=== PATIENT | male | born 1945 | race Caucasian/White ===

== ENCOUNTER 2018-03-28 15:21 | Inpatient (IN) | payer MEDICARE, OTHER ==
[~2018-03-28] VITALS: Ht 175.3 cm; Wt 71.1 kg
[2018-03-28 15:49] LABS: BASOPHILS % (AUTO) 0 % (0-1); EOSINOPHILS % (AUTO) 0 % (0-6); HEMATOCRIT 38.1 % (42.0-52.0); HEMOGLOBIN 12.8 g/dl (14.0-17.9); LYMPHOCYTES # (AUTO) 0.3 X10'3 (1.1-4.8); LYMPHOCYTES % (AUTO) 1.8 % (21-51); MEAN CORPUSCULAR HEMOGLOBIN 29.3 PG (27.0-31.0); MEAN CORPUSCULAR HGB CONC 33.6 % (33.0-36.5); MEAN CORPUSCULAR VOLUME 87.1 FL (78-98); MEAN PLATELET VOLUME 8.8 FL (7.4-10.4); MONOCYTES # (AUTO) 1.4 X10'3 (0-0.9); MONOCYTES % (AUTO) 7.5 % (2-12); NEUTROPHILS # (AUTO) 16.5 X10'3 (1.8-7.7); NEUTROPHILS % (AUTO) 90.7 % (42-75); PLATELET COUNT 190 X10'3 (140-440); RED BLOOD COUNT 4.38 X10'6 (4.70-6.10); RED CELL DISTRIBUTION WIDTH 14.5 % (11.5-14.5); WHITE BLOOD COUNT 18.2 X10'3 (4.5-11.0)
[2018-03-28 15:58] LABS: INR 1.1 INR; PROTHROMBIN TIME 11.1 SECONDS (9.0-12.0)
[2018-03-28 16:03] LABS: ALANINE AMINOTRANSFERASE 35 U/L (12-78); ALBUMIN 3.7 G/DL (3.4-5.0); ALKALINE PHOSPHATASE 96 IU/L (46-116); ANION GAP 11 (8-16); ASPARTATE AMINO TRANSFERASE 44 U/L (10-37); BILIRUBIN,TOTAL 1.6 MG/DL (0.1-1.0); BLOOD UREA NITROGEN 26 MG/DL (7-18); BUN/CREATININE RATIO 20.3 (5.4-32.0); CALCIUM 8.8 MG/DL (8.5-10.1); CHLORIDE 100 MMOL/L (99-107); CREATININE 1.28 MG/DL (0.60-1.10); GLUCOSE 134 MG/DL (70-104); POTASSIUM 3.5 MMOL/L (3.5-5.1); SODIUM 138 MMOL/L (135-145); TOTAL CARBON DIOXIDE 27.4 MMOL/L (24-32); TOTAL PROTEIN 7.5 G/DL (6.4-8.2); eGFR 55 ML/MIN
[2018-03-28] MEDS ORDERED: CefTRIAXone 2gm/D5W 50ml 50 ML IV ONE (16:05)
[2018-03-28] MEDS ORDERED: normal saline 1000ML IV soln IV ONE (16:05)
[2018-03-28] MEDS ORDERED: oxybutynin 5mg tablet PO ONE (16:15)
[2018-03-28] MEDS ORDERED: opium/belladonna alkaloids No. 15A 30mg rectal suppository RC ONE (16:15)
[2018-03-28 18:05] LABS: CLARITY,URINE CLEAR (Clear); COLOR,URINE YELLOW (Yellow); GLUCOSE, URINE NEGATIVE (Neg); KETONES,URINE 15 mg/dl (Neg); LEUKOCYTE ESTERASE ,URINE LARGE (Neg); NITRITES, URINE POSITIVE (Neg); OCCULT BLOOD,URINE LARGE (Neg); PROTEIN,URINE 30 mg/dl (Neg)
[2018-03-28 18:21] LABS: UA COLLECTION TYPE FOLEY CATH
[2018-03-28 18:27] LABS: BACTERIA,URINE 2+ /HPF (Neg); RBC,URINE 0-2 /HPF (0-2); SQUAMOUS EPITHELIAL CELL,UR NONE SEEN /LPF (FEW)
[2018-03-28 18:29] LABS: MUCUS STRANDS FEW /LPF (Neg)
[2018-03-28] MEDS ORDERED: TERA10CA4 PO (19:47)
[2018-03-28] MEDS ORDERED: LISI-600 PO (19:47)
[2018-03-28] MEDS ORDERED: ATOR10TA87 PO (19:52)
[2018-03-28] MEDS ORDERED: magnesium hydroxide 30ml (MOM) UD suspension PO PRN (22:15)
[2018-03-28] MEDS ORDERED: ondansetron/PF 4mg/2ml inj IV PRN (22:15)
[2018-03-28] MEDS ORDERED: mag hydrox/Alum hydrox/simeth 30ml oral suspension PO PRN (22:15)
[2018-03-28] MEDS ORDERED: HYDROcodone/acetaminophen 5mg/325mg tablet PO PRN (22:15)
[2018-03-28] MEDS ORDERED: acetaminophen 325mg tablet PO PRN (22:15)
[2018-03-28] MEDS ORDERED: HYDROmorphone inj. 0.5 MG/0.5 ML DISP.SYRIN IV PRN ×2 (22:15)
[2018-03-28] MEDS ORDERED: HYDROmorphone 1 mg/ml syringe IV PRN (22:20)
[2018-03-28 22:35] VITALS: BP 166/77
[2018-03-28] MEDS: normal saline 1000ml 1,000 ML IV SCH (22:57)
[2018-03-29 00:35] VITALS: BP 132/64
[2018-03-29] MEDS: HYDROcodone/acetaminophen 10/325mg tab PO PRN ×4 (03:30→18:52)
[2018-03-29 05:15] LABS: BASOPHILS % (AUTO) 0.3 % (0-1); EOSINOPHILS % (AUTO) 0.2 % (0-6); HEMATOCRIT 32.9 % (42.0-52.0); HEMOGLOBIN 10.9 g/dl (14.0-17.9); LYMPHOCYTES # (AUTO) 0.7 X10'3 (1.1-4.8); LYMPHOCYTES % (AUTO) 5.5 % (21-51); MEAN CORPUSCULAR HEMOGLOBIN 28.7 PG (27.0-31.0); MEAN CORPUSCULAR HGB CONC 33.1 % (33.0-36.5); MEAN CORPUSCULAR VOLUME 86.8 FL (78-98); MEAN PLATELET VOLUME 9.4 FL (7.4-10.4); MONOCYTES # (AUTO) 0.8 X10'3 (0-0.9); MONOCYTES % (AUTO) 6.6 % (2-12); NEUTROPHILS # (AUTO) 11.2 X10'3 (1.8-7.7); NEUTROPHILS % (AUTO) 87.4 % (42-75); PLATELET COUNT 166 X10'3 (140-440); RED CELL DISTRIBUTION WIDTH 14.7 % (11.5-14.5); WHITE BLOOD COUNT 12.8 X10'3 (4.5-11.0)
[2018-03-29 05:33] LABS: ALANINE AMINOTRANSFERASE 30 U/L (12-78); ALBUMIN 2.7 G/DL (3.4-5.0); ALBUMIN/GLOBULIN RATIO 0.8 (1.1-1.5); ALKALINE PHOSPHATASE 77 IU/L (46-116); ANION GAP 8 (8-16); ASPARTATE AMINO TRANSFERASE 31 U/L (10-37); BILIRUBIN,TOTAL 0.8 MG/DL (0.1-1.0); BLOOD UREA NITROGEN 23 MG/DL (7-18); BUN/CREATININE RATIO 25.8 (5.4-32.0); CALCIUM 7.9 MG/DL (8.5-10.1); CHLORIDE 107 MMOL/L (99-107); CREATININE 0.89 MG/DL (0.60-1.10); GLUCOSE 105 MG/DL (70-104); POTASSIUM 3.2 MMOL/L (3.5-5.1); SODIUM 140 MMOL/L (135-145); TOTAL CARBON DIOXIDE 24.8 MMOL/L (24-32); eGFR 84 ML/MIN
[2018-03-29 07:00] VITALS: BP 155/75
[2018-03-29] MEDS ORDERED: lisinopril 20mg tablet PO SCH (08:00)
[2018-03-29] MEDS: terazosin 5mg capsule PO SCH (08:45)
[2018-03-29] MEDS: atorvastatin 10mg tablet PO SCH (08:45)
[2018-03-29] MEDS: CefTRIAXone/D5W-Rocephin 1gm 50 ML IV SCH (08:46)
[2018-03-29] MEDS ORDERED: potassium Cl 40MEQ/NS 500ml 500 ML IV PRN ×2 (10:15)
[2018-03-29] MEDS ORDERED: potassium Cl 20 mEq SR tablet PO PRN (10:15)
[2018-03-29 11:00] VITALS: BP 135/68
[2018-03-29] MEDS: potassium Cl 20 mEq SR tablet PO PRN ×3 (11:42→20:37)
[2018-03-29 13:48] LABS: LIPASE 79 U/L (73-393)
[2018-03-29 13:54] LABS: MAGNESIUM 1.8 MG/DL (1.5-2.4)
[2018-03-29] MEDS: normal saline 1000ml 1,000 ML IV SCH (15:10)
[2018-03-29 18:00] VITALS: BP 148/78
[2018-03-30] VITALS: BP 173/79
[2018-03-30 01:00] VITALS: BP 170/82
[2018-03-30] MEDS ORDERED: lisinopril 10 MG tablet PO ONE ×3 (01:35→10:30)
[2018-03-30] MEDS ORDERED: lisinopril 10 MG tablet PO SCH (01:42)
[2018-03-30] MEDS: HYDROmorphone 1 mg/ml syringe IV PRN ×5 (03:11→23:14)
[2018-03-30 03:47] VITALS: BP 160/74
[2018-03-30] MEDS: normal saline 1000ml 1,000 ML IV SCH ×2 (04:35→23:15)
[2018-03-30 04:44] LABS: BASOPHILS % (AUTO) 0.4 % (0-1); EOSINOPHILS # (AUTO) 0.1 X10'3 (0-0.9); EOSINOPHILS % (AUTO) 0.5 % (0-6); HEMATOCRIT 33.4 % (42.0-52.0); HEMOGLOBIN 11.2 g/dl (14.0-17.9); LYMPHOCYTES # (AUTO) 0.8 X10'3 (1.1-4.8); LYMPHOCYTES % (AUTO) 6.8 % (21-51); MEAN CORPUSCULAR HEMOGLOBIN 29.3 PG (27.0-31.0); MEAN CORPUSCULAR HGB CONC 33.6 % (33.0-36.5); MEAN CORPUSCULAR VOLUME 87.4 FL (78-98); MEAN PLATELET VOLUME 9.2 FL (7.4-10.4); MONOCYTES # (AUTO) 0.9 X10'3 (0-0.9); MONOCYTES % (AUTO) 7.7 % (2-12); NEUTROPHILS # (AUTO) 10.2 X10'3 (1.8-7.7); NEUTROPHILS % (AUTO) 84.6 % (42-75); PLATELET COUNT 187 X10'3 (140-440); RED BLOOD COUNT 3.83 X10'6 (4.70-6.10); RED CELL DISTRIBUTION WIDTH 15.1 % (11.5-14.5)
[2018-03-30 04:58] LABS: ALANINE AMINOTRANSFERASE 44 U/L (12-78); ALBUMIN 2.8 G/DL (3.4-5.0); ALBUMIN/GLOBULIN RATIO 0.8 (1.1-1.5); ALKALINE PHOSPHATASE 79 IU/L (46-116); ANION GAP 7 (8-16); ASPARTATE AMINO TRANSFERASE 32 U/L (10-37); BILIRUBIN,TOTAL 0.4 MG/DL (0.1-1.0); BLOOD UREA NITROGEN 16 MG/DL (7-18); BUN/CREATININE RATIO 18.4 (5.4-32.0); CHLORIDE 105 MMOL/L (99-107); CREATININE 0.87 MG/DL (0.60-1.10); GLUCOSE 107 MG/DL (70-104); POTASSIUM 3.7 MMOL/L (3.5-5.1); SODIUM 138 MMOL/L (135-145); TOTAL CARBON DIOXIDE 26.3 MMOL/L (24-32); TOTAL PROTEIN 6.2 G/DL (6.4-8.2); eGFR 86 ML/MIN
[2018-03-30 07:00] VITALS: BP 177/82
[2018-03-30] MEDS: atorvastatin 10mg tablet PO SCH (08:20)
[2018-03-30] MEDS: terazosin 5mg capsule PO SCH (08:20)
[2018-03-30] MEDS: CefTRIAXone/D5W-Rocephin 1gm 50 ML IV SCH (08:21)
[2018-03-30] MEDS ORDERED: hyDRALAzine 10mg tablet PO PRN (10:30)
[2018-03-30] MEDS: montelukast 10mg tablet PO SCH (12:44)
[2018-03-30] MEDS: phenazopyridine 100mg tablet PO SCH ×2 (12:45→17:48)
[2018-03-30 18:00] VITALS: BP 165/85
[2018-03-30] MEDS: lactobacillus rhamnosus 10,000 MMU CELLS/CAPSULE PO SCH (21:04)
[2018-03-30] MEDS: triamcinolone acet 0.1% cream 15gm TP SCH (21:04)
[2018-03-31] VITALS: BP 174/83
[2018-03-31] MEDS: HYDROmorphone 1 mg/ml syringe IV PRN ×5 (03:36→23:20)
[2018-03-31 05:06] LABS: BASOPHILS % (AUTO) 0.3 % (0-1); EOSINOPHILS # (AUTO) 0.1 X10'3 (0-0.9); HEMATOCRIT 33.9 % (42.0-52.0); HEMOGLOBIN 11.3 g/dl (14.0-17.9); LYMPHOCYTES # (AUTO) 0.8 X10'3 (1.1-4.8); LYMPHOCYTES % (AUTO) 6.8 % (21-51); MEAN CORPUSCULAR HEMOGLOBIN 29.4 PG (27.0-31.0); MEAN CORPUSCULAR HGB CONC 33.4 % (33.0-36.5); MEAN PLATELET VOLUME 9.6 FL (7.4-10.4); MONOCYTES # (AUTO) 1.1 X10'3 (0-0.9); MONOCYTES % (AUTO) 8.9 % (2-12); NEUTROPHILS # (AUTO) 10.1 X10'3 (1.8-7.7); PLATELET COUNT 228 X10'3 (140-440); RED BLOOD COUNT 3.86 X10'6 (4.70-6.10); RED CELL DISTRIBUTION WIDTH 14.8 % (11.5-14.5); WHITE BLOOD COUNT 12.2 X10'3 (4.5-11.0)
[2018-03-31 06:03] LABS: ALANINE AMINOTRANSFERASE 43 U/L (12-78); ALBUMIN 2.8 G/DL (3.4-5.0); ALBUMIN/GLOBULIN RATIO 0.8 (1.1-1.5); ALKALINE PHOSPHATASE 78 IU/L (46-116); ANION GAP 6 (8-16); ASPARTATE AMINO TRANSFERASE 35 U/L (10-37); BILIRUBIN,TOTAL 0.4 MG/DL (0.1-1.0); BLOOD UREA NITROGEN 10 MG/DL (7-18); BUN/CREATININE RATIO 11.5 (5.4-32.0); CALCIUM 8.5 MG/DL (8.5-10.1); CHLORIDE 105 MMOL/L (99-107); CHOL/HDL RATIO 3.5 (0.00-4.99); CHOLESTEROL 76 MG/DL (0-200); CREATININE 0.87 MG/DL (0.60-1.10); GLUCOSE 119 MG/DL (70-104); HDL CHOLESTEROL 22 MG/DL (35-60); LDL CHOLESTEROL 44 MG/DL (50-100); POTASSIUM 3.6 MMOL/L (3.5-5.1); SODIUM 139 MMOL/L (135-145); TOTAL CARBON DIOXIDE 27.9 MMOL/L (24-32); TOTAL PROTEIN 6.4 G/DL (6.4-8.2); TRIGLYCERIDES 65 MG/DL (20-135); eGFR 86 ML/MIN
[2018-03-31 07:00] VITALS: BP 141/84
[2018-03-31] MEDS: CefTRIAXone/D5W-Rocephin 1gm 50 ML IV SCH (07:23)
[2018-03-31] MEDS: terazosin 5mg capsule PO SCH (07:25)
[2018-03-31] MEDS: atorvastatin 10mg tablet PO SCH (07:26)
[2018-03-31] MEDS: phenazopyridine 100mg tablet PO SCH ×3 (07:26→17:44)
[2018-03-31] MEDS: lactobacillus rhamnosus 10,000 MMU CELLS/CAPSULE PO SCH ×2 (07:26→20:43)
[2018-03-31] MEDS: montelukast 10mg tablet PO SCH (07:27)
[2018-03-31] MEDS: triamcinolone acet 0.1% cream 15gm TP SCH ×2 (07:28→20:44)
[2018-03-31] MEDS ORDERED: lisinopril 10 MG tablet PO SCH ×2 (08:00)
[2018-03-31 11:30] VITALS: BP 139/75
[2018-03-31] MEDS ORDERED: magnesium citrate 296ml oral solution PO ONE (12:15)
[2018-03-31] MEDS ORDERED: cephalexin 500mg capsule PO SCH (14:00)
[2018-03-31] MEDS ORDERED: oxybutynin 5mg tablet PO ONE (16:15)
[2018-03-31] MEDS: normal saline 1000ml 1,000 ML IV SCH (16:39)
[2018-03-31] MEDS ORDERED: lisinopril 20mg tablet PO SCH (17:41)
[2018-03-31] MEDS: levoFLOXACIN 500mg tablet PO SCH (17:44)
[2018-03-31 20:00] VITALS: BP 170/88
[2018-03-31] MEDS: oxybutynin 5mg tablet PO SCH (20:44)
[2018-04-01] VITALS: BP 183/87
[2018-04-01] MEDS: HYDROmorphone 1 mg/ml syringe IV PRN ×2 (04:10→08:04)
[2018-04-01 04:59] LABS: BASOPHILS % (AUTO) 0.3 % (0-1); EOSINOPHILS # (AUTO) 0.3 X10'3 (0-0.9); EOSINOPHILS % (AUTO) 2.5 % (0-6); HEMATOCRIT 32.7 % (42.0-52.0); HEMOGLOBIN 10.9 g/dl (14.0-17.9); MEAN CORPUSCULAR HGB CONC 33.4 % (33.0-36.5); MEAN CORPUSCULAR VOLUME 86.9 FL (78-98); MEAN PLATELET VOLUME 8.9 FL (7.4-10.4); MONOCYTES # (AUTO) 0.9 X10'3 (0-0.9); MONOCYTES % (AUTO) 7.9 % (2-12); NEUTROPHILS # (AUTO) 8.8 X10'3 (1.8-7.7); NEUTROPHILS % (AUTO) 80.3 % (42-75); PLATELET COUNT 255 X10'3 (140-440); RED BLOOD COUNT 3.76 X10'6 (4.70-6.10); RED CELL DISTRIBUTION WIDTH 14.9 % (11.5-14.5); WHITE BLOOD COUNT 10.9 X10'3 (4.5-11.0)
[2018-04-01 05:26] LABS: ALANINE AMINOTRANSFERASE 43 U/L (12-78); ALBUMIN 2.7 G/DL (3.4-5.0); ALBUMIN/GLOBULIN RATIO 0.8 (1.1-1.5); ALKALINE PHOSPHATASE 70 IU/L (46-116); ANION GAP 10 (8-16); ASPARTATE AMINO TRANSFERASE 38 U/L (10-37); BILIRUBIN,TOTAL 0.5 MG/DL (0.1-1.0); BLOOD UREA NITROGEN 13 MG/DL (7-18); BUN/CREATININE RATIO 14.4 (5.4-32.0); CALCIUM 8.3 MG/DL (8.5-10.1); CHLORIDE 104 MMOL/L (99-107); GLUCOSE 105 MG/DL (70-104); POTASSIUM 3.2 MMOL/L (3.5-5.1); SODIUM 141 MMOL/L (135-145); TOTAL CARBON DIOXIDE 27.1 MMOL/L (24-32); TOTAL PROTEIN 6.3 G/DL (6.4-8.2); eGFR 83 ML/MIN
[2018-04-01 07:00] VITALS: BP 164/76
[2018-04-01] MEDS: montelukast 10mg tablet PO SCH (07:23)
[2018-04-01] MEDS: lactobacillus rhamnosus 10,000 MMU CELLS/CAPSULE PO SCH (07:23)
[2018-04-01] MEDS: oxybutynin 5mg tablet PO SCH (07:23)
[2018-04-01] MEDS: atorvastatin 10mg tablet PO SCH (07:23)
[2018-04-01] MEDS: terazosin 5mg capsule PO SCH (07:24)
[2018-04-01] MEDS: phenazopyridine 100mg tablet PO SCH (07:24)
[2018-04-01] MEDS: potassium Cl 20 mEq SR tablet PO PRN (07:24)
[2018-04-01] MEDS: triamcinolone acet 0.1% cream 15gm TP SCH (07:24)
[2018-04-01] MEDS: HYDROcodone/acetaminophen 10/325mg tab PO PRN (07:27)
[2018-04-01] MEDS ORDERED: docusate sod 100mg capsule PO ONE (08:00)
[2018-04-01] MEDS ORDERED: docusate sod 100mg capsule PO SCH (08:00)
[2018-04-01] MEDS: normal saline 1000ml 1,000 ML IV SCH (09:34)
[2018-04-01 09:43] VITALS: BP 133/67
[2018-04-01 11:30] VITALS: BP 137/74
[2018-04-01] MEDS: levoFLOXACIN 500mg tablet PO SCH (12:03)
[2018-04-01] MEDS ORDERED: LISI-600 PO (12:07)
[2018-04-01] MEDS ORDERED: OXYB5TAB11 PO (12:07)
[2018-04-01] MEDS ORDERED: HYDR-3972 PO (12:07)
[2018-04-01] MEDS ORDERED: LEVO500T89 PO (12:07)
[2018-04-01] MEDS ORDERED: LIDOcaine 2% 10ml TOPICAL JELLY (Urojet) MM ONE (14:30)
== END 2018-04-01 13:00 | disposition home or self-care (01) | DRG 698 ==
LOC: ER 15:22 → ED HOLD 22:14 → SUR 3N 22:50
PROVIDERS: ADMIT Internal Medicine; ATTEND Family Medicine
PROC: 0TWBX0Z Revision of Drainage Device in Bladder, External Approach (ICD-10-PCS; principal; 2018-04-01)
DX: T83.098A Other mechanical complication of other urinary catheter, initial encounter (principal); A41.9 Sepsis, unspecified organism; N39.0 Urinary tract infection, site not specified; N13.8 Other obstructive and reflux uropathy; E78.5 Hyperlipidemia, unspecified; I10 Essential (primary) hypertension; Y73.3 Surgical instruments, materials and gastroenterology and urology devices (including sutures) associated with adverse incidents; E87.6 Hypokalemia; E86.0 Dehydration; L30.9 Dermatitis, unspecified; B96.5 Pseudomonas (aeruginosa) (mallei) (pseudomallei) as the cause of diseases classified elsewhere; B96.1 Klebsiella pneumoniae [K. pneumoniae] as the cause of diseases classified elsewhere; B96.20 Unspecified Escherichia coli [E. coli] as the cause of diseases classified elsewhere; J44.9 Chronic obstructive pulmonary disease, unspecified; N32.0 Bladder-neck obstruction; N32.89 Other specified disorders of bladder; N40.1 Benign prostatic hyperplasia with lower urinary tract symptoms; Z79.899 Other long term (current) drug therapy; Y92.89 Other specified places as the place of occurrence of the external cause
CPT/HCPCS: 36415; 71045; 76882; 80053; 80061; 81001; 83605; 83690; 83735; 83880; 84145; 84443; 85025; 85610; 87040; 87070; 87077; 87088; 87186; 96365; 99285; A4310; A6257; J0696; J1170; J7030